=== PATIENT | female | born 1955 | race Caucasian/White ===

== ENCOUNTER 2022-10-06 14:41 | Inpatient (IN) | payer OTHER ==
[2022-10-06 15:18] VITALS: BMI 13.8
[2022-10-06] MEDS ORDERED: ACETAMINOPHEN 325 MG TABLET (FP) PO PRN ×2 (17:00)
[2022-10-06] MEDS ORDERED: ONDANSETRON *ODT* 4 MG TABLET SL PRN (17:00)
[2022-10-06] MEDS ORDERED: MAG HYDROX/AL HYDROX/SIMETH 30 ML UNIT-DOSE CUP PO PRN (17:00)
[2022-10-06] MEDS ORDERED: NALOXONE HCL (KLOXXADO) 8 MG SPRAY NS PRN (17:00)
[2022-10-06] MEDS ORDERED: DICYCLOMINE HCL 10 MG CAPSULE PO PRN (17:00)
[2022-10-06] MEDS ORDERED: POLYETHYLENE GLYCOL (HEALTHYLAX) 3350 17 GM PACKET PO PRN (17:00)
[2022-10-06] MEDS ORDERED: hydrOXYzine PAMOATE 25 MG CAPSULE (FP) PO PRN (17:00)
[2022-10-06] MEDS ORDERED: IBUPROFEN 600 MG TABLET (FP) PO PRN (17:00)
[2022-10-06] MEDS ORDERED: BENZOCAINE/MENTHOL (CHLORASEPTIC ) LOZENGE MM PRN (17:00)
[2022-10-06] MEDS ORDERED: IBUPROFEN 400 MG TABLET (FP) PO PRN (17:00)
[2022-10-06] MEDS ORDERED: LOPERAMIDE HCL 2 MG CAPSULE PO PRN (17:00)
[2022-10-06] MEDS ORDERED: MAGNESIUM HYDROX 2400MG/30ML ORAL SUSPENSION 30 ML CUP PO PRN (17:00)
[2022-10-06] MEDS ORDERED: BISMUTH SUBSALICYLATE 524 MG/30 ML PO PRN (17:00)
[2022-10-06] MEDS ORDERED: MELATONIN 5 MG TABLETS PO SCH (22:00)
[2022-10-06] MEDS: THIAMINE HCL 100 MG TABLET (FP) PO SCH (22:04)
[2022-10-06] MEDS ORDERED: ALBUTEROL SO4 HFA INHALER IH PRN (23:29)
[2022-10-07] MEDS: levETIRAcetam 250 MG TABLET PO SCH ×2 (00:41→11:45)
[2022-10-07] MEDS: PRENATAL VITAMINS W/ FOLIC ACID TABLET (FP) PO SCH (10:24)
[2022-10-07] MEDS: LOSARTAN POTASSIUM 100 MG TABLET PO SCH (11:19)
[2022-10-07] MEDS ORDERED: MELATONIN 5 MG TABLETS PO PRN (12:53)
[2022-10-07] MEDS ORDERED: WARFARIN NA 2 MG TABLET PO SCH (18:00)
[2022-10-07] MEDS ORDERED: ATORVASTATIN CA 40 MG TABLET (FP) PO SCH (22:00)
[2022-10-07] MEDS: THIAMINE HCL 100 MG TABLET (FP) PO SCH (22:33)
[2022-10-08] MEDS: levETIRAcetam 250 MG TABLET PO SCH (00:22)
[2022-10-08 09:45] VITALS: BP 126/87; PULSE 70; RESP 18; TEMP 98.1
[2022-10-08] MEDS: LOSARTAN POTASSIUM 100 MG TABLET PO SCH (10:18)
[2022-10-08] MEDS: PRENATAL VITAMINS W/ FOLIC ACID TABLET (FP) PO SCH (10:18)
[2022-10-08 13:43] LABS: CALCIUM 8.9 mg/dL (8.5-10.1)
[2022-10-08 13:44] LABS: ALBUMIN 3.5 g/dl (3.4-5.0); BLOOD UREA NITROGEN 11.3 mg/dL (7-18)
[2022-10-08 13:47] LABS: CREATININE 0.8 mg/dL (0.55-1.3)
[2022-10-08 13:48] LABS: BILIRUBIN,TOTAL 0.9 mg/dL (0.2-1); TOT PROT 6.9 g/dl (6.4-8.2)
== END 2022-10-08 12:35 | disposition home or self-care (01) | DRG 897 ==
LOC: YASAS 14:41 → Y6N 21:35
PROVIDERS: ADMIT Allergy & Immunology; ATTEND Surgery
PROC: HZ2ZZZZ Detoxification Services for Substance Abuse Treatment (ICD-10-PCS; principal; 2022-10-06)
DX: F10.230 Alcohol dependence with withdrawal, uncomplicated (principal); F19.282 Other psychoactive substance dependence with psychoactive substance-induced sleep disorder; E78.1 Pure hyperglyceridemia; I10 Essential (primary) hypertension; J45.20 Mild intermittent asthma, uncomplicated; R56.9 Unspecified convulsions; Z95.1 Presence of aortocoronary bypass graft; Z95.810 Presence of automatic (implantable) cardiac defibrillator; Z88.5 Allergy status to narcotic agent
CPT/HCPCS: 36415; 80053; 86780; 93005; 93010; C9803-CS; U0003; U0005